=== PATIENT | female | born 1970 | race Caucasian/White ===

== ENCOUNTER 2017-06-10 09:23 | Emergency (ER) | payer OTHER ==
--- NOTE | 2017-06-10 09:31 | UC ---
Knee Pain HPI - HPI Summary HPI Summary: 47 YEAR OLD FEMALE PRESENTS WITH COMPLAINS LEFT KNEE PAIN POST FALL. - History of Current Complaint Chief Complaint: UCLowerExtremity Stated Complaint: KNEE INJURY Hx Last Menstrual Period: does not get - Allergies/Home Medications Allergies/Adverse Reactions: Allergies Allergy/AdvReac Type Severity Reaction Status Date / Time No Known Allergies Allergy Verified 10/11/15 09:31 Home Medications: Home Medications ALPRAZolam TAB* [Xanax TAB*] 0.25 mg PO Q6H PRN 06/10/17 [History Confirmed 11/15] FLUoxetine CAP* [Prozac CAP*] 10 mg PO DAILY 06/10/17 [History Confirmed ] Hydroxychloroquine TAB* [Plaquenil TAB*] 200 mg PO DAILY 06/10/17 [History Confirmed 06/10/17] Levothyroxine TAB* [Synthroid 25 MCG TAB*] 25 mcg PO 0800 06/10/17 [History Confirmed 06/10/17] Topiramate [Topamax 100 mg tab] 06/10/17 [History] oxyCODONE/Acetamin 10/325(NF) [Percocet 10/325 (NF)] 06/10/17 [History] traZODone TAB* [Desyrel TAB*] 50 mg PO BEDTIME 06/10/17 [History Confirmed 06/10] PMH/Surg Hx/FS Hx/Imm Hx - Surgical History Surgical History: Yes Surgery Procedure, Year, and Place: 93 TUBAL LIGATION, 92 GALLBLADDER - Social History Alcohol Use: Rare Substance Use Type: None Smoking Status (MU): Former Smoker Type: Cigarettes Length of Time of Smoking/Using Tobacco: 17 yrs Have You Smoked in the Last Year: Yes Review of Systems Constitutional: Negative Skin: Negative Eyes: Negative ENT: Negative Respiratory: Negative Cardiovascular: Negative Gastrointestinal: Negative Genitourinary: Negative Motor: Negative Neurovascular: Negative Musculoskeletal: Arthralgia, Myalgia, Other: - LEFT KNEE PAIN Neurological: Negative Psychological: Negative All Other Systems Reviewed And Are Negative: Yes Physical Exam Triage Information Reviewed: Yes Vital Signs: Initial Vital Signs Temp 36.4 C 06/10/17 09:25 Pulse 72 06/10/17 09:25 Resp 18 06/10/17 09:25 BP 108/67 06/10/17 09:25 Pulse Ox 100 07/12/17 09:25 Eye Exam: Normal ENT Exam: Normal Dental Exam: Normal Neck exam: Normal Neck: Positive: 1 Respiratory Exam: Normal Cardiovascular Exam: Normal Abdominal Exam: Normal Musculoskeletal: Positive: Strength Limited @, ROM Limited @, Other: - LEFT KNEE PAIN/SWELLING Neurological Exam: Normal Psychological Exam: Normal Skin Exam: Normal Knee Pain Course/Dx - Differential Dx/Diagnosis Provider Diagnoses: LEFT KNEE CONTUSION Discharge - Discharge Plan Condition: Stable Disposition: HOME Prescriptions: Meloxicam [Mobic] 7.5 mg PO BID PC #30 tab Patient Education Materials: Knee Pain (ED) Referrals: Bren Najera NP [Nurse Practitioner] - If Needed Laura Kahn MD [Medical Doctor] -
[2017-06-10 09:42] VITALS: BP 108/67
--- NOTE | 2017-06-10 10:02 | RAD ---
HISTORY: Fall, left medial knee pain COMPARISONS: None VIEWS: 4, Frontal, lateral, axial, and oblique views of the left knee FINDINGS: BONE DENSITY: Normal. BONES: There is no displaced fracture. JOINTS: There is no arthropathy. There is no suprapatellar joint effusion or lipohemarthrosis. ALIGNMENT: There is no dislocation. SOFT TISSUES: Unremarkable. OTHER FINDINGS: None. IMPRESSION: NO ACUTE OSSEOUS INJURY. IF SYMPTOMS PERSIST, RECOMMEND REPEAT IMAGING.
== END 2017-06-10 10:22 | disposition home or self-care (01) ==
LOC: UCEAST 09:23
DX: S80.02XA Contusion of left knee, initial encounter (principal); W19.XXXA Unspecified fall, initial encounter; Y93.9 Activity, unspecified; Y92.9 Unspecified place or not applicable; Z90.49 Acquired absence of other specified parts of digestive tract; Z87.891 Personal history of nicotine dependence
CPT/HCPCS: 99213; G0463

== ENCOUNTER 2018-09-11 10:54 | Emergency (ER) | payer OTHER ==
[2018-09-11 11:04] VITALS: BP 98/67
--- NOTE | 2018-09-11 11:44 | UC ---
Lower Extremity/Ankle HPI - HPI Summary HPI Summary: Pt c/o left foot and ankle pain, bruising swelling after falling multiple time at night. Pt has had recent medication change and believes she is "passing out in evening while standing." Pt has appointment with PCP regarding syncopal episodes on 09/13/18. Pt is here for c/o left foot and ankle pain. - History of Current Complaint Chief Complaint: UCLowerExtremity Stated Complaint: FOOT/ANKLE INJURY Time Seen by Provider: 09/11/18 11:07 Hx Obtained From: Patient Hx Last Menstrual Period: 2014 ?: No Onset/Duration: Sudden Onset, Lasting Days, Still Present Severity Initially: Moderate Severity Currently: Severe Pain Intensity: 10 Aggravating Factor(s): Standing, Ambulation Alleviating Factor(s): Rest Able to Bear Weight: Yes - minimal - Risk Factors Gout Risk Factors: Age Over 40 DVT Risk Factors: Smoking, Recent Travel Septic Arthritis Risk Factor: Negative - Allergies/Home Medications Allergies/Adverse Reactions: Allergies Allergy/AdvReac Type Severity Reaction Status Date / Time No Known Allergies Allergy Verified 09/11/18 10:56 Home Medications: Home Medications Morphine TAB (NF) [Morphine 30 MG TAB (NF)] 15 mg PO BID 09/11/18 [History Confirmed 09/11/18] Oxycodone HCl/Acetaminophen [Percocet 7.5-325 mg Tablet] 1 each PO 09/11/18 [ History] PMH/Surg Hx/FS Hx/Imm Hx Previously Healthy: Yes Psychological History: Anxiety - Surgical History Surgical History: Yes Surgery Procedure, Year, and Place: 93 TUBAL LIGATION, 92 GALLBLADDER; BI- LATERAL MASTECTOMY; BI-LAT BREAST IMPLANTS - Family History Known Family History: Negative: Renal Disease - Social History Occupation: Works From/At Home Lives: With Family Alcohol Use: None Substance Use Type: None Smoking Status (MU): Current Every Day Smoker Type: Cigarettes Amount Used/How Often: 3 CIG/DAY Length of Time of Smoking/Using Tobacco: 17 yrs Have You Smoked in the Last Year: Yes When Did the Patient Quit Smoking/Using Tobacco: quit 2015 Review of Systems Constitutional: Negative Skin: Bruising - left foot Eyes: Negative ENT: Negative Respiratory: Negative Cardiovascular: Negative Gastrointestinal: Negative Genitourinary: Negative Motor: Decreased ROM - left ankle and foot, Weakness - left ankle and foot Neurovascular: Negative Musculoskeletal: Arthralgia, Decreased ROM, Edema - left ankle and foot, Myalgia Neurological: Negative Psychological: Negative Is Patient Immunocompromised?: No All Other Systems Reviewed And Are Negative: Yes Physical Exam Triage Information Reviewed: Yes Appearance: Well-Appearing Vital Signs: Initial Vital Signs Temp 97.6 F 09/11/18 10:57 Pulse 92 09/11/18 10:57 Resp 16 09/11/18 10:57 BP 98/67 09/11/18 10:57 Pulse Ox 100 09/11/18 10:57 Vital Signs Reviewed: Yes Eye Exam: Normal ENT Exam: Normal Dental Exam: Normal Neck exam: Normal Respiratory: Positive: No respiratory distress Musculoskeletal: Positive: Strength Limited @ - left foot and ankle, ROM Limited @, Edema @ Neurological Exam: Normal Psychological Exam: Normal Skin Exam: Other - left foot, generalized bruising Diagnostics - Radiology No standard instances Radiology Interpretation Completed By: Radiologist - IMPRESSION: No fracture of the left foot is noted. Lower Extremity Course/Dx - Course Course Of Treatment: I disucssed with the pt her history reported of syncopal episode with medication change. Pt states that she has not had a syncopal episode in 1 week after discontinuing suspected medication. - Differential Dx/Diagnosis Differential Diagnosis/HQI/PQRI: Contusion, Fracture (Closed), Sprain, Strain Provider Diagnoses: left foot contusion Discharge - Sign-Out/Discharge Documenting (check all that apply): Patient Departure All imaging exams completed and their final reports reviewed: No Studies - Discharge Plan Condition: Stable Disposition: HOME Patient Education Materials: Foot Contusion (ED), Ankle Sprain (ED) Referrals: Daniel Melendez MD [Primary Care Provider] - - Billing Disposition and Condition Condition: STABLE Disposition: Home
--- NOTE | 2018-09-11 11:45 | RAD ---
Indication: Left foot pain after fall. 3 views of left foot demonstrates no fracture or dislocation. No other bone or joint abnormality is noted. IMPRESSION: No fracture of the left foot is noted.
== END 2018-09-11 12:05 | disposition home or self-care (01) ==
LOC: UCEAST 10:54
DX: S90.32XA Contusion of left foot, initial encounter (principal); F17.210 Nicotine dependence, cigarettes, uncomplicated; W19.XXXA Unspecified fall, initial encounter; Y92.9 Unspecified place or not applicable; Z79.891 Long term (current) use of opiate analgesic; Z90.13 Acquired absence of bilateral breasts and nipples
CPT/HCPCS: 99212; G0463